=== PATIENT | female | born 1995 | race Caucasian/White ===

== ENCOUNTER 2022-06-24 06:21 | Emergency (ER) | payer OTHER ==
[2022-06-24 06:28] VITALS: BP 128/87
[2022-06-24 07:24] VITALS: BP 128/87
[2022-06-24] MEDS ORDERED: AMOX/K CLAV875 M1 PO (07:33)
== END 2022-06-24 08:19 | disposition home or self-care (01) ==
LOC: ED 06:21
DX: J02.9 Acute pharyngitis, unspecified (principal); Z20.822 Contact with and (suspected) exposure to COVID-19

== ENCOUNTER 2023-03-16 21:44 | Emergency (ER) | payer OTHER ==
[~2023-03-16] VITALS: Ht 160 cm; Wt 63.5 kg
[~2023-03-16 21:44] MED LIST: AMOX/K CLAV875 M1 PO; TRAMADOL HCL50 MG PO; VOLTAREN - GENE75 MG PO
[2023-03-16 21:52] VITALS: BP 145/89
[2023-03-16 22:00] VITALS: BP 135/89
[2023-03-16 23:00] VITALS: BP 140/87
[2023-03-16 23:06] LABS: BASO% 0.7 % (0-3); EOS% 2.4 % (0-8); HEMATOCRIT 36.4 % (37.0-47.0); HEMOGLOBIN 12.5 g/dl (12.0-16.0); IMMATURE GRANULOCYTES 0.1 % (0.0-5.0); LYMPH% 41.9 % (15-41); MEAN CELL VOLUME 90.3 fL CALC (80.0-100.0); MEAN CORPUSCULAR HGB CONC 34.3 g/dL CAL (32.0-36.0); MONO% 8.5 % (2-13); NEUT# 3.44 thou/uL (2.00-7.15); NEUT% 46.4 % (42-76); RED BLOOD COUNT 4.03 mill/uL (4.20-5.60)
[2023-03-16 23:17] LABS: ALBUMIN 4.2 g/dL (3.2-5.0); ALKALINE PHOSPHATASE 73 u/l (38-126); ANION GAP 9 (6-22 (CALC)); BILIRUBIN, TOTAL 1.6 mg/dL (0.02-1.3); BUN 14 mg/dL (7-17); BUN/CREATININE RATIO 20 (12-20 (CALC)); CARBON DIOXIDE 27 mmol/l (22-30); CHLORIDE 110 mmol/l (95-108); CREATININE 0.7 mg/dL (0.5-1.0); GFR FOR AFR.AMER. > 60 ML/MIN (>=60 (CALC)); GFR OTHER RACES > 60 ML/MIN (>=60 (CALC)); POTASSIUM 3.8 mmol/l (3.5-5.1); SGOT/AST 43 u/l (14-36); SODIUM 141 mmol/l (137-146); TOTAL PROTEIN 7.4 g/dL (6.3-8.2)
[2023-03-17] MEDS ORDERED: KEFLEX500 MG PO ×2 (00:44→00:45)
[2023-03-17 00:50] VITALS: BP 140/87
== END 2023-03-17 00:50 | disposition home or self-care (01) ==
LOC: ED 21:44
PROVIDERS: Family Medicine
DX: S91.331A Puncture wound without foreign body, right foot, initial encounter (principal); F17.210 Nicotine dependence, cigarettes, uncomplicated; W45.0XXA Nail entering through skin, initial encounter; Z59.00 Homelessness unspecified